=== PATIENT | female | born 1990 | race Caucasian/White ===

== ENCOUNTER 2019-12-27 14:05 | Emergency (ER) | payer BC, OTHER ==
[~2019-12-27] VITALS: Ht 157.5 cm; Wt 104.6 kg
[2019-12-27] MEDS ORDERED: MORPHINE SULFATE 4 MG/ML, 1ML IVPush PRN (14:30)
[2019-12-27] MEDS ORDERED: SODIUM CHLORIDE FLUSH 10ML SYR IVF ONE (14:30)
[2019-12-27] MEDS ORDERED: ONDANSETRON 2MG/ML, 2ML IVPush ONE (14:30)
[2019-12-27] MEDS ORDERED: MORPHINE SULFATE 4 MG/ML, 1ML ONE (14:44)
[2019-12-27] MEDS ORDERED: ONDANSETRON 2MG/ML, 2ML ONE (14:44)
--- NOTE | 2019-12-27 14:55 | NUR ---
Pt c/o uterine cramping and bleeding since last . Pt reports she is , LMP 10/27/19. Pt reports pain 12/09. Pt placed in gown, positioned for comfort in bed. Continuous oxygen and BP Monitors applied, all safety measures observed.
[2019-12-27 15:00] LABS: BASOPHILS % (AUTO) 1 % (0-1); EOSINOPHILS # (AUTO) 0.15 x10^3/uL (0-0.4); EOSINOPHILS % (AUTO) 1 % (1-7); LYMPHOCYTES # (AUTO) 3.38 x10^3/uL (1-3.4); LYMPHOCYTES % (AUTO) 25 % (22-44); MD NO; MEAN CORPUSCULAR HEMOGLOBIN 31.3 pg (27.0-34.8); MEAN PLATELET VOLUME 8.8 fL (7.4-10.4); MONOCYTES # (AUTO) 0.72 x10^3/uL (0.2-0.8); MONOCYTES % (AUTO) 5 % (2-9); NEUTROPHILS # (AUTO) 9.02 x10^3/uL (1.8-6.8); NEUTROPHILS % (AUTO) 68 % (42-75); PLATELET COUNT 291 x10^3/uL (130-400); RED BLOOD COUNT 4.75 x10^6/uL (3.82-5.3); RED CELL DISTRIBUTION WIDTH 13.3 % (9.6-15.2)
--- NOTE | 2019-12-27 15:00 | NUR ---
Pt to [facility] via [facility].
[2019-12-27 15:01] LABS: ALBUMIN 3.6 g/dL (3.4-5.0); ANION GAP 8 mmol/L (5-15); CALCIUM 8.7 mg/dL (8.5-10.1); CHLORIDE 111 mmol/L (98-107); CREATININE 0.88 mg/dL (0.55-1.02)
[2019-12-27 15:54] VITALS: BP 118/55
--- NOTE | 2019-12-27 15:54 | NUR ---
RETURNED FROM ULTRASOUND. PT STATES PAIN 2/10 AT THIS TIME. PT STATES SHE PASSED LARGE CLOTS IN ULTRASOUND. STATES SHE IS BLEEDING CURRENTLY BUT NOT PASSING CLOTS. SET UP AT BEDSIDE FOR VAGINAL EXAM.
--- NOTE | 2019-12-27 16:21 | NUR ---
dr jaeger spoke with dr baca
--- NOTE | 2019-12-27 17:04 | NUR ---
PT EDUCATED ON MEDICATION AND F/U. PT HAD NO QUESTIONS AFTER EDUCATION. PT AMBULATED TO DC DESK, STEADY GAIT.
== END 2019-12-27 17:08 | disposition home or self-care (01) ==
LOC: ED 15:33
DX: O03.4 Incomplete spontaneous abortion without complication (principal)
CPT/HCPCS: 36415; 76801; 80048; 82040; 84702; 85025; 86901; 99284